=== PATIENT | male | born 1995 | race Caucasian/White ===

== ENCOUNTER 2017-03-27 02:12 | Emergency (ER) | payer OTHER ==
[2017-03-27 02:17] VITALS: TEMP 97.7
--- NOTE | 2017-03-27 02:41 | EDPHY ---
H & P Stated Complaint: r hand poss. fx after punching a door HPI/ROS: HPI CHIEF COMPLAINT: Right hand pain and swelling after punching a door HISTORY OF PRESENT ILLNESS: This patient is a 21-year-old male no significant medical history does not take any daily medications he has been drinking alcohol this evening he states he got rather drunk and then punched his front door. He tells me was locked out. States he did not need to punch his front door as hard as he thinks he did. He now presents emergency room with swelling and pain to the dorsum of the right hand. No numbness or tingling. Has full range of motion. No other injuries. Past Medical History: No medical history Past Surgical History: No surgical history Social History: Occasional alcohol use, denies illicit drugs or tobacco Family History: Noncontributory ROS REVIEW OF SYSTEMS: A comprehensive 10 point review of systems is otherwise negative aside from elements mentioned in the history of present illness. Exam Constitutional triage nursing summary reviewed, vital signs reviewed, awake/ alert. Eyes normal conjunctivae and sclera, EOMI, PERRLA. HENT normal inspection, atraumatic, moist mucus membranes, no epistaxis, neck supple/ no meningismus, no raccoon eyes. Respiratory clear to auscultation bilaterally, normal breath sounds, no respiratory distress, no wheezing. Cardiovascular rate normal, regular rhythm, no murmur, no edema, distal pulses normal. Gastrointestinal soft, non-tender, no rebound, no guarding, normal bowel sounds, no distension, no pulsatile mass. Genitourinary no CVA tenderness. Musculoskeletal right hand: Tender palpation over the dorsum of the right hand there is a hematoma present, however he is neurovascularly intact good cap refill warm extremity good journeyman carpenter strength, good extension of all fingers, good radial pulse. no midline vertebral tenderness, full range of motion, no calf swelling, no tenderness of extremities, no meningismus, good pulses, neurovascularly intact. Skin pink, warm, & dry, no rash, skin atraumatic. Neurologic awake, alert and oriented x 3, AAOx3, moves all 4 extremities equally, motor intact, sensory intact, CN II-XII intact, normal cerebellar, normal vision, normal speech. Psychiatric normal mood/affect. Heme/Lymph/Immune no lymphadenopathy. Differential Diagnosis: Includes but is not limited to in a particular order hand contusion, soft tissue injury, hand fracture, boxer's fracture Medical Decision Making:Plan for this patient x-ray right hand to rule out metacarpal fracture boxer's fracture. Ice pack. Re-evaluation: ED x-ray: Right hand: This shows a fracture at the distal aspect of the 3rd metacarpal. Otherwise unremarkable. Image interpreted by myself. This patient be splinted in a sugar-tong splint. Patient need to follow up with Hand surgery. He has been referred. He understands. He also understands return emergency room if develops any worsening pain swelling numbness or tingling. Stay in a splint. Return if any questions or concerns. Call Hand surgery tomorrow. Source: Patient - Personal History Current Tetanus/Diphtheria Vaccine: Yes Current Tetanus Diphtheria and Acellular Pertussis (TDAP): Yes - Medical/Surgical History Hx Asthma: No Hx Chronic Respiratory Disease: No Hx Diabetes: No Hx Cardiac Disease: No Hx Renal Disease: No Hx Cirrhosis: No Hx Alcoholism: No Hx HIV/AIDS: No Hx Splenectomy or Spleen Trauma: No Other PMH: denies - Social History Smoking Status: Light smoker Constitutional: Initial Vital Signs Temperature (C) 36.5 C 03/27/17 02:14 Heart Rate 86 03/27/17 02:14 Respiratory Rate 18 03/27/17 02:14 Blood Pressure 125/60 H 03/27/17 02:14 O2 Sat (%) 96 03/27/17 02:14 O2 Delivery Mode Room Air Allergies/Adverse Reactions: No Known Allergies Allergy (Unverified 03/27/17 02:16) Home Medications: Medication Instructions Recorded NK [No Known Home Meds] 03/27/17 Departure - Departure Disposition: Home, Routine, Self-Care Clinical Impression: Boxers fracture Qualifiers: Encounter type: initial encounter Fracture type: closed Qualified Code(s): S62.309A - Unspecified fracture of unspecified metacarpal bone, initial encounter for closed fracture Condition: Good Instructions: Hand Fracture (ED) Additional Instructions: 1. Ice your hand. 2. Take Motrin for pain control. 3. Follow up with Hand Surgery Referrals: NONE *PRIMARY CARE P,. [Primary Care Provider] - As per Instructions Pj Noble MD [Medical Doctor] - As per Instructions
[2017-03-27] MEDS ORDERED: HYDROCOD/APAP 5/325 PREPACK#6 BTL TAKEHOME ONE (03:57)
[2017-03-27 04:52] VITALS: BP 122/72; PULSE 76; RESP 16; O2SAT 95
== END 2017-03-27 04:50 | disposition home or self-care (01) ==
DX: S62.302A Unspecified fracture of third metacarpal bone, right hand, initial encounter for closed fracture (principal); F17.200 Nicotine dependence, unspecified, uncomplicated; W22.09XA Striking against other stationary object, initial encounter; Y99.8 Other external cause status
CPT/HCPCS: A4565